=== PATIENT | male | born 1955 | race Caucasian/White ===

== ENCOUNTER 2020-01-20 08:32 | Outpatient (REF) | payer OTHER, SELFPAY | END 2020-01-20 08:33 | disposition home or self-care (01) | LOC: HO.LAB 08:32 | PROVIDERS: Visit Provider Internal Medicine | DX: Z20.828 Contact with and (suspected) exposure to other viral communicable diseases (principal) | CPT/HCPCS: C9803; U0003 ==

== ENCOUNTER 2020-06-10 07:52 | Outpatient (REF) | payer OTHER, SELFPAY ==
[2020-06-10 10:37] LABS: Cholesterol 157 mg/dL; HDL Cholesterol 49 mg/dL; LDL Cholesterol Calculated 88 mg/dl; Triglycerides 102 mg/dL
== END 2020-06-10 07:53 | disposition home or self-care (01) ==
LOC: HO.10HDL 07:52
PROVIDERS: Visit Provider Internal Medicine
DX: I10 Essential (primary) hypertension (principal)
CPT/HCPCS: 36415; 80061

== ENCOUNTER 2020-08-11 09:41 | Outpatient (REF) | payer OTHER, SELFPAY ==
[2020-08-11 11:35] LABS: Prostate Specific Antigen Scr 5.46 ng/mL (<0.05-4.0)
== END 2020-08-11 09:42 | disposition home or self-care (01) ==
LOC: HO.10HDL 09:41
PROVIDERS: Visit Provider Internal Medicine
DX: Z12.5 Encounter for screening for malignant neoplasm of prostate (principal); R35.1 Nocturia
CPT/HCPCS: 36415; 84153

== ENCOUNTER 2021-03-17 11:44 | Outpatient (REF) | payer OTHER, SELFPAY ==
[2021-03-17 15:06] LABS: Prostate Specific Antigen Scr 4.17 ng/mL (<0.05-4.0)
== END 2021-03-17 11:45 | disposition home or self-care (01) ==
LOC: HO.10HDL 11:44
PROVIDERS: Visit Provider Internal Medicine
DX: R35.1 Nocturia (principal); Z12.5 Encounter for screening for malignant neoplasm of prostate
CPT/HCPCS: 36415; 84153

== ENCOUNTER 2021-10-07 07:12 | Outpatient (REF) | payer MEDICARE, OTHER, SELFPAY ==
[2021-10-07 11:21] LABS: MANUAL DIFF FLAG NO
[2021-10-07 11:34] LABS: Basophils Percent Auto 0.7 % (0-2); Eosinophils Absolute Auto 0.2 X10*3/uL (0.0-0.4); Eosinophils Percent Auto 3.3 % (0-4); Hematocrit 44.7 % (42.0-52.0); Hemoglobin 14.5 g/dl (14.0-18.0); Imm Gran Abs Auto 0.03 X10*3/uL (0.00-0.03); Imm Gran Pct Auto 0.5 % (0.0-0.4); Lymphocytes Absolute Auto 1.5 X10*3/uL (1.2-4.9); Lymphocytes Percent Auto 25.4 % (20-40); Mean Corpuscular HGB Conc 32.4 g/dl (31.0-36.0); Mean Corpuscular Hemoglobin 29.6 pg (27.0-33.0); Mean Corpuscular Volume 91.2 fL (80.0-98.0); Mean Platelet Volume 11.4 fL (9.4-12.4); Monocytes Absolute Auto 0.7 X10*3/uL (0.1-1.2); Monocytes Percent Auto 10.7 % (2-11); Neutrophils Absolute Auto 3.6 x10*3/uL (2.0-8.3); Neutrophils Percent Auto 59.4 % (45-73); Platelet Count 260 X10*3/uL (160-400); Red Cell Distribution Width 13.6 % (11.0-16.0); White Blood Count 6.1 X10*3/uL (4.8-10.8)
[2021-10-07 11:53] LABS: Alanine Aminotransferase 37 U/L (0-40); Albumin Level 4.1 g/dL (3.5-5.0); Alkaline Phosphatase 49 U/L (39-117); Anion Gap 13 (12-20); Aspartate Amino Transferase 24 U/L (5-37); Bilirubin Total 0.4 mg/dL (0.0-1.0); Blood Urea Nitrogen 18 mg/dL (9-16); Calcium 9.3 mg/dL (8.4-10.2); Carbon Dioxide 27 mmol/L (22-29); Chloride 103 mmol/L (96-108); Cholesterol 170 mg/dL; Estimated Glomerular Filt Rate > 60; Glucose Fasting 109 mg/dL (60-99); HDL Cholesterol 49 mg/dL; LDL Cholesterol Calculated 100 mg/dl; Potassium 5.1 mmol/L (3.3-5.1); Sodium 138 mmol/L (135-145); Total Protein 7.2 g/dL (6.5-8.0); Triglycerides 106 mg/dL
[2021-10-07 12:23] LABS: Prostate Specific Antigen Scr 6.06 ng/mL (<0.05-4.0); Thyroid Stimulating Hormone 2.29 uIU/mL (0.32-4.0)
== END 2021-10-07 07:13 | disposition home or self-care (01) ==
LOC: HO.HMGCLDS 07:12
PROVIDERS: PCP Internal Medicine; Visit Provider Internal Medicine
DX: Z00.00 Encounter for general adult medical examination without abnormal findings (principal); Z12.5 Encounter for screening for malignant neoplasm of prostate; Z13.0 Encounter for screening for diseases of the blood and blood-forming organs and certain disorders involving the immune mechanism
CPT/HCPCS: 36415; 80053; 80061; 84153; 84443; 85025

== ENCOUNTER 2021-12-30 07:48 | Outpatient (REF) | payer MEDICARE, SELFPAY ==
[2021-12-30 15:10] LABS: Cholesterol 171 mg/dL; HDL Cholesterol 49 mg/dL; LDL Cholesterol Calculated 99 mg/dl; Triglycerides 116 mg/dL
== END 2021-12-30 07:49 | disposition home or self-care (01) ==
LOC: HO.HMGCLDS 07:48
PROVIDERS: PCP Internal Medicine; Visit Provider Internal Medicine
DX: E78.5 Hyperlipidemia, unspecified (principal)
CPT/HCPCS: 36415; 80061

== ENCOUNTER → 2022-02-25 09:48 | Outpatient (BNVA) | payer OTHER, MEDICARE, SELFPAY | PROVIDERS: PCP Internal Medicine; Visit Provider Urology | DX: Z13.89 Encounter for screening for other disorder (principal) ==

== ENCOUNTER 2022-06-16 07:34 | Outpatient (REF) | payer OTHER, SELFPAY ==
[2022-06-16 12:28] LABS: PSA,Total (Free>4and<10) 1.83 ng/mL (0.00-4.00)
== END 2022-06-16 07:35 | disposition home or self-care (01) ==
LOC: HO.HMGCLDS 07:34
PROVIDERS: PCP Internal Medicine; Visit Provider Urology
DX: R97.20 Elevated prostate specific antigen [PSA] (principal); Z12.5 Encounter for screening for malignant neoplasm of prostate
CPT/HCPCS: 36415; 84153

== ENCOUNTER → 2022-06-24 09:05 | Outpatient (BNVA) | payer OTHER, SELFPAY | PROVIDERS: PCP Internal Medicine; Visit Provider Urology ==

== ENCOUNTER 2022-10-13 08:34 | Outpatient (AMB) | payer OTHER, SELFPAY ==
--- NOTE | 2022-10-13 08:37 | A.OFFVIS_ITS ---
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 destin elbow pain, left thumb pain, low back pain, destin hip pain (right hip pain triggered by prior abx) Armature Bander Required: No Accompanied by: Self / Same As Patient Allergies No Known Allergies Allergy (Verified 10/13/22 08:38) Medication List - Last Reconciled 10/13/22 by Justin Culp MD esomeprazole magnesium (Nexium) 20 mg PO DAILY finasteride 5 mg PO DAILY 90 days hydrocortisone valerate 0.2% 1 appl topical BID PRN lisinopril 20 mg PO DAILY sildenafil 50 mg PO DAILY PRN simvastatin 40 mg PO BEDTIME HPI HPI Comments History of Present Illness Details This gentleman with longstanding plaque psoriasis mostly over the elbows knees presents for evaluation of multiple areas of pain. These include the left greater than right thumb, lower back, right greater than left hip, and both lateral epicondylar regions in the elbows. The hip pain he has known about for about 20 years. It tends to come and go. It seems to be worse with more physical activity. It does not seem to cause any radiation of the pain. He has taken occasional [id number] analgesics for that. In the last 6 months so he has noted pain in the right hip. This seems to be in the anterior and lateral region of the hip. It is worse with walking or standing. Rarely he notes similar pain on the left. There has been no fall or injury to the hips. He notes pain at the base of the thumb on the left and occasionally in a similar position on the right. This again is with more heavier use of the hands. 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 He did opt out of mowing the lawn this summer because of physical issues. He gets lateral elbow pain when using the hands. This has been present now for about 6 weeks. He does not know of any particular injury to the area. He did try some elbow splinting but that did not seem to help. [facility] Medical History (Updated 10/13/22 @ 09:17 by Justin Culp MD) BPH (benign prostatic hyperplasia) GERD (gastroesophageal reflux disease) Hyperlipidemia Hypertension IBS (irritable bowel syndrome) Surgical History H/O circumcision Hx of colonoscopy (~2016) Hx of esophagogastroduodenoscopy (~2016) Family History (Updated 10/13/22 @ 08:46 by JUDY Abel) Father No problems noted. Mother No problems noted. Son Psoriatic arthritis Social History (Updated 10/13/22 @ 08:44 by JUDY Abel) Household Members: Spouse Household Members Other:: son, dog, cat Housing: House Alcohol intake: former Patient Tobacco Use Status: Never used Tobacco e-Cigarette/Vaping Use: Never Used Second Hand Smoke Exposure: Yes service: No Current occupational status: employed Current occupation: insurance verification specialist-desk work Cognitive needs: No Hearing needs: Yes Vision needs: Yes Review of Systems Const Details: Negative for appetite change, weight change, fever, chills, malaise and fatigue Eyes Details: Negative for vision change, dry eyes,headaches and dizziness ENT Details: Occasional tenderness. Negative for hearing change, oral ulcer, nose bleeds and oral dryness. Card Details: Negative chest pain, edema and syncope Resp Details: Negative for SOB, cough and wheezing GI Details: Negative indigestion/heartburn, nausea, abdominal pain, bowel changes, diarrhea, constipation and bloody stool. Details: Negative for dysuria, hematuria, nocturia, decreased force/flow and genital discharge Skin/Breast Details: Longstanding plaque psoriasis. He does have a hydrocortisone cream for this but also uses [id number] tar products. Negative for itching, hives, Raynaud's symptoms, sun sensitivity, and skin cancer Neuro Details: Negative for epilepsy, palsy, stroke, changes in speech, tingling and weakness Psych Details: Negative for anxiety, depression and stress Endo Details: Negative for polyuria and polydypsia José Manuel/Lymph Details: Negative for excessive bruising or bleeding. Physical Exam Vital Signs: Last Vital Signs Temp 97.2 F 10/13/22 08:38 Pulse 79 10/13/22 08:38 BP 122/82 10/13/22 08:38 Pulse Ox 97 10/13/22 08:38 Oxygen Delivery Method Room Air 10/13/22 08:38 BMI result Body Mass Index 26.9 APPEARANCE: Patient in no acute distress EYES no redness, pupils equal and reactive to light, eyelids normal EARS: External ear normal, canal clear and tympanic membrane normal. NOSE/SINUS: Airflow through both nares, no nasal discharge, no bleeding THROAT: Oral mucosa moist, no ulcerations NECK: No thyromegaly or masses, no adenopathy, trachea midline. HEART: Regulrar rhythm, S1-S2 heard, no murmurs, rubs or gallops. LUNG: Clear to percussion and auscultation ABD: Normal bowel sounds, no organomegaly, masses or tenderness. EXTREMITIES: No edema, no calf tenderness, normal peripheral pulses. NEURO: Oriented and alert x3. No focal weakness. Reflexes symmetric. Gait normal. SKIN: Dry plaques of psoriasis evident over the elbows and knees. No nail abnormalities. No scalp lesions. JOINT EXAM:.?? Cervical Spine:.? Full range of motion without pain; no tenderness. Thoracic Spine:.? No scoliosis.? No tenderness on palpation. Lumbar Spine:.? Alignment normal.? Mild discomfort with extremes of motion. No tenderness. Chest Wall:.? No tenderness, swelling, increased warmth or erythema. Hands: Right: Mild tenderness without enlargement at the base of the thumb. T here is slight bony enlargement at the thumb IP and 2nd 3rd PIP is. These are not tender. There is bony enlargement without tenderness at the 2nd and 3rd DIP. There is no thenar atrophy or sensory loss.? Left: Mild bony enlargement and tenderness at the base of the thumb. There is nontender bony enlargement at the thumb IP and 2nd PIP. No other areas of tenderness or swelling. No thenar atrophy or sensory loss. Wrists:.? Normal pain-free range of motion without tenderness, swelling, increased warmth or erythema. Elbows:. Normal pain-free range of motion with slight discomfort at full extension. This is felt out over the lateral epicondyle where he has some mild tenderness. Over the joint spaces there is no tenderness, swelling, increased warmth or erythema. There is some minimal tenderness over the medial epicondyles bilaterally. Shoulders:.?? Right: There is some mild discomfort with extremes of normal range of motion. This is felt mostly over the deltoid. There is some subacromial and right anterior tenderness but it is mild. No abductor weakness, adenopathy, or swelling. Left: Full range of motion without pain. No tenderness, weakness, swelling, increased warmth or erythema. Hips:.? Right: Mild pain with lateral abduction at 15 degrees or more than 10 degrees of internal rotation. The pain is felt anteriorly and laterally in the hip. He lacks a little bit of hyperextension at the hip as well. Left: Slight groin pain with extremes of normal range of motion.. Hip bursa:.? Mild right trochanteric tenderness. Knees:.?? Normal pain-free range of motion with mild patellofemoral crepitus but no effusion, tenderness, swelling, increased warmth or erythema.? Ankles:.? Normal pain-free range of motion without tenderness, swelling, increased warmth or erythema. Feet: Left: Mild 1st MTP bony enlargement with slight hallux valgus deformity but no tenderness. Right:? Normal pain-free range of motion without tenderness, swelling, increased warmth or erythema. Tender points:.? No tenderness to digital palpation at the occiput, trapezius, second rib, lateral epicondyle, knees, greater trochanter and gluteal area bilaterally. ? Results Reviewed Results Reviewed: Laboratory Tests 10/07/21 10/07/21 07:18 07:18 WBC 6.1 Hgb 14.5 Creatinine 1.08 Assessment & Plan Assessment & Plan (1) Lateral epicondylitis of both elbows: Code(s): M77.11 - Lateral epicondylitis, right elbow; M77.12 - Lateral epicondylitis, left elbow (2) Hip pain, bilateral: Code(s): M25.551 - Pain in right hip; M25.552 - Pain in left hip (3) Psoriasis: Code(s): L40.9 - Psoriasis, unspecified (4) Osteoarthritis of hands, bilateral: Code(s): M19.041 - Primary osteoarthritis, right hand; M19.042 - Primary osteoarthritis, left hand Plan He has longstanding psoriasis but no findings on exam to suggest an active psoriatic arthritis picture. There are findings of osteoarthritis in the hands. He may have some OA in the hips or even some inflammatory arthiris there. I suspect he has OA in the hips as well as in the lower back given the pattern of his pain. He has also some lateral elbow tenderness consistent with lateral epicondylitis. Treatment with NSAIDs is not that attractive given he is on chronic PPI for heartburn. We will try some diclofenac gel to the affected areas in the hands and the lateral epicondylar regions. I will get x-rays of his elbows and hips as well as inflammatory markers. We will get back to him when those lab test and xrays come back. Orders: Orders XR hip LT min 2V Today M25.551 - Pain in right hip, M25.552 - Pain in left hip XR hip RT min 2V Today M25.551 - Pain in right hip, M25.552 - Pain in left hip XR elbow LT min 3V Today M77.11 - Lateral epicondylitis, right elbow, M77.12 - Lateral epicondylitis, left elbow XR elbow RT min 3V Today M77.11 - Lateral epicondylitis, right elbow, M77.12 - Lateral epicondylitis, left elbow Erythrocyte Sedimentation Rate Today M25.551 - Pain in right hip, M25.552 - Pain in left hip C Reactive Protein Today M25.551 - Pain in right hip, M25.552 - Pain in left hip Medications: New diclofenac sodium 1% apply to affected joints twice a day 2 grams topical BID 100 grams 4RF Coding Level of Care Code New Pt Level 4 (37962) Diagnoses Lateral epicondylitis of both elbows M77.11; M77.12 Hip pain, bilateral M25.551; M25.552 Psoriasis L40.9 Osteoarthritis of hands, bilateral M19.041; M19.042
[2022-10-13 08:38] VITALS: BP 122/82; PULSE 79; TEMP 36.2; O2SAT 97; BMI 26.9
== END 2022-10-13 09:47 | disposition home or self-care (01) ==
PROVIDERS: PCP Internal Medicine; Visit Provider Internal Medicine Rheumatology
DX: M77.11 Lateral epicondylitis, right elbow (principal); M77.12 Lateral epicondylitis, left elbow; M25.551 Pain in right hip; M25.552 Pain in left hip; L40.9 Psoriasis, unspecified; M19.041 Primary osteoarthritis, right hand; M19.042 Primary osteoarthritis, left hand
CPT/HCPCS: 99204

== ENCOUNTER → 2022-10-13 08:34 | Outpatient (BNVA) | payer OTHER, SELFPAY | PROVIDERS: Visit Provider Internal Medicine Rheumatology ==

== ENCOUNTER 2022-10-14 09:00 | Day surgery (SDC) | payer OTHER, SELFPAY ==
--- NOTE | 2022-10-12 12:42 | HO.ANESPROP2 ---
Documented by User: Tomasa Monterroso NP 10/12/22 12:44 HPI - Anesthesia Eval Consult details Narrative: 67yo M for Colonoscopy PMFSH Active Problems Active Problems: All Active Problems (Updated 07/05/22 @ 10:20 by Michael Moeller MD) BPH (benign prostatic hyperplasia) (Acute) Bladder outlet obstruction (Acute) Elevated PSA (Acute) Acute prostatitis (Acute) Hyperlipidemia (Acute) Psoriasis (Acute) Physical exam (Acute) Hyperlipidemia associated with type 2 diabetes mellitus (Acute) Hypertension (Acute) Past Medical History Medical History BPH (benign prostatic hyperplasia) GERD (gastroesophageal reflux disease) Hyperlipidemia Hypertension IBS (irritable bowel syndrome) Family History Family History Father No problems noted. Mother No problems noted. Son Psoriatic arthritis Surgical History Surgical History H/O circumcision Hx of colonoscopy (~2015) Hx of esophagogastroduodenoscopy (~2015) Social History Social History Household Members: Spouse Household Members Other:: son, dog, cat Housing: House Alcohol intake: former Patient Tobacco Use Status: Never used Tobacco e-Cigarette/Vaping Use: Never Used Second Hand Smoke Exposure: Yes Are you DNR?: No Advance Directives: No Advance Directives Information Provided: Yes Nutrition Risks: No Nutritional Risk service: No Current occupational status: employed Current occupation: hospital insurance representative-desk work Cognitive needs: No Hearing needs: Yes Vision needs: Yes Meds Allergies Allergy/AdvReac Type Severity Reaction Status Date / Time No Known Allergies Allergy Verified 10/14/22 09:09 Home Medications Medication Instructions Recorded Confirmed Last Taken Type esomeprazole magnesium 20 mg 20 mg PO DAILY 10/12/22 10/13/22 Unknown History capsule,delayed release (Nexium) Exam Exam Date and Time: October 12, 2022 1242 Assessment and Plan Assessment Anesthesia Assessment: Chart Reviewed Documented by User: Jessica Rahman MD 10/14/22 09:28 [facility] Past Medical History Medical History BPH (benign prostatic hyperplasia) GERD (gastroesophageal reflux disease) Hyperlipidemia Hypertension IBS (irritable bowel syndrome) Family History Family History Father No problems noted. Mother No problems noted. Son Psoriatic arthritis Family history of problems with anesthesia: No Surgical History Surgical History H/O circumcision Hx of colonoscopy (~2015) Hx of esophagogastroduodenoscopy (~2015) History of Problems with Anesthesia: No Social History Social History Household Members: Spouse Household Members Other:: son, dog, cat Housing: House Alcohol intake: former Patient Tobacco Use Status: Never used Tobacco e-Cigarette/Vaping Use: Never Used Second Hand Smoke Exposure: Yes Are you DNR?: No Advance Directives: No Advance Directives Information Provided: Yes Nutrition Risks: No Nutritional Risk service: No Current occupational status: employed Current occupation: hospital insurance representative-desk work Cognitive needs: No Hearing needs: Yes Vision needs: Yes Meds Allergies Allergy/AdvReac Type Severity Reaction Status Date / Time No Known Allergies Allergy Verified 10/14/22 09:09 Home Medications Medication Instructions Recorded Confirmed Last Taken Type esomeprazole magnesium 20 mg 20 mg PO DAILY 10/12/22 10/13/22 Unknown History capsule,delayed release (Nexium) Exam Airway Mallampati Class: II TM Dist: >3cm Neck ROM: Full Heart: rrr Lungs: cta Assessment and Plan Assessment Anesthesia Assessment: Anesthesia Plan Discussed Final Anesthetic Review Family History of Problems with Anesthesia: No History of Problems with Anesthesia: No NPO: Yes ASA Class: II Final Preanesthetic Review: No Changes in Pt Med Stat, Meds/Allgs Chart Reviewed, Consent Obtained/Reviewed and Anes Risks/Benef Reviewed Patient Risk: Low Procedure Risk: Low Anesthetic Plan Anesthetic Plan: MAC:
[2022-10-14 06:03] VITALS: BMI 27.5
[2022-10-14] MEDS: Lactated Ringers 1,000 ML 100 ML IVCONT (09:17)
[2022-10-14 09:20] VITALS: BP 123/90; PULSE 102; RESP 18; TEMP 36.2; O2SAT 95
--- NOTE | 2022-10-14 11:06 | P.BOP_ITS ---
Brief Operative Note Date of Service: 10/14/22 Pre-op diagnosis: Screening Post-op diagnosis: other (Polyps) Procedure: Colonoscopy to the cecum with biopsy and removal of polyps Surgeon: Jessee Baldwin Anesthesia: MAC Was an Legal Executive Assistant used for this Procedure?: No Estimated blood loss (mL): 2.0 Pathology: other (A. Ascending colon polyp B. Transverse colon polyp) Condition: stable Disposition: PACU
[2022-10-14 11:08] VITALS: BP 81/52; PULSE 76; RESP 16; TEMP 36.2; O2SAT 97
[2022-10-14 11:13] VITALS: BP 92/58; PULSE 75; O2SAT 96
[2022-10-14 11:18] VITALS: BP 108/76; PULSE 85; RESP 18; O2SAT 98
[2022-10-14 11:23] VITALS: BP 124/64; PULSE 88; RESP 18; TEMP 36.4; O2SAT 99
--- NOTE | 2022-10-14 11:54 | OP_ITS ---
DATE OF SERVICE: 10/14/2022 SURGEON: Jessee Baldwin MD INDICATIONS: The patient presents for evaluation of colorectal cancer screening and personal history of tubular adenoma of the colon. Full consent has been obtained from him for this, including risks of bleeding and perforation. PREOPERATIVE DIAGNOSIS: Colorectal cancer screening and personal history of tubular adenoma of the colon. POSTOPERATIVE DIAGNOSIS: Colorectal cancer screening and personal history of tubular adenoma of the colon, small colon polyps, diverticulosis, and internal hemorrhoids. PROCEDURE PERFORMED: Colonoscopy to the cecum with biopsy and removal of polyps. ESTIMATED BLOOD LOSS: COMPLICATIONS: ANESTHESIA: Monitored anesthesia care. ASSISTANTS: SPECIMENS: DESCRIPTION OF PROCEDURE: The patient was placed in the left lateral decubitus position. The digital rectal exam revealed no abnormalities. The Olympus video pediatric colonoscope was entered into the rectum and advanced easily to the cecum. Once in the cecum, I did identify normal-appearing cecal pouch with appendiceal orifice and a normal-appearing ileocecal valve. The entire cecum and ileocecal valve appeared normal. The scope was slowly withdrawn assessing all mucosal surfaces carefully. Preparation was excellent. In the ascending colon and transverse colon were some small, less than 5 mm polyps, which were all biopsied and completely removed with a cold biopsy forceps. I did not visualize any other polyps, colitis, nor angiodysplasia. There was a mild amount of sigmoid diverticulosis. In the rectum, scope was retroflexed visualizing internal hemorrhoids, but no other pathology. The rectal mucosa appeared normal. The scope was straightened and withdrawn from the patient, he tolerated the procedure well, and was returned to the recovery area in stable condition. IMPRESSION: 1. Colon polyps. 2. Diverticulosis. 3. Internal hemorrhoids. PLAN: The results of the biopsies will be checked. I would recommend a repeat colonoscopy in 5 years for further surveillance. He will otherwise see me on a p.r.n. basis. Jessee Baldwin MD RMW/JUAN JOSÉL / [id number]
== END 2022-10-14 11:55 | disposition home or self-care (01) ==
PROVIDERS: PCP Internal Medicine; Visit Provider Internal Medicine
PROC: 0DJD8ZZ Inspection of Lower Intestinal Tract, Via Natural or Artificial Opening Endoscopic (ICD-10-PCS; CPT 45378; principal; 2022-10-14 10:00)
DX: Z12.11 Encounter for screening for malignant neoplasm of colon (principal); K63.5 Polyp of colon; K57.30 Diverticulosis of large intestine without perforation or abscess without bleeding; K64.8 Other hemorrhoids; Z86.010 Personal history of colon polyps; K58.0 Irritable bowel syndrome with diarrhea; K21.9 Gastro-esophageal reflux disease without esophagitis; I10 Essential (primary) hypertension; E78.5 Hyperlipidemia, unspecified; Z79.899 Other long term (current) drug therapy
CPT/HCPCS: 45380; 88305; J2250

== ENCOUNTER 2022-11-19 10:37 | Outpatient (REF) | payer OTHER, SELFPAY ==
--- NOTE | ~2022-11-19 | XR_ITS ---
EXAMINATION: XR HIPS, BILATERAL CLINICAL INFORMATION: Pain. COMPARISON: None available. TECHNIQUE: Right hip 2 views. Left hip 2 views. FINDINGS: Right Hip: Anatomic alignment. Joint space is maintained. No acute fracture or dislocation. Lateral acetabular bony hypertrophy. Mild symphysis pubis degeneration. Phleboliths in the pelvis. Left Hip: Anatomic alignment. Joint space is maintained. Lateral acetabular hypertrophy. No acute fracture or dislocation. 1.1 cm ossification projected over the proximal femur/acetabulum, of uncertain etiology. This could represent a loose body or bony sclerotic focus. XR/XR hip RT min 2V IMPRESSION: RIGHT HIP: Mild arthritis. No acute findings. LEFT HIP: Mild arthritis. 1.1 cm ossification projected over the proximal femur/acetabulum, of uncertain uncertain etiology, could represent loose body or bony sclerotic focus. Correlate with prior imaging. Further evaluation with cross-sectional imaging as clinically warranted.
--- NOTE | ~2022-11-19 | XR_ITS ---
EXAMINATION: XR ELBOW, BILATERAL CLINICAL INFORMATION: Lateral epicondylitis. COMPARISON: None available. TECHNIQUE: Bilateral elbows each 3 views. FINDINGS: LEFT ELBOW: Alignment is anatomic. Joint spaces are maintained. No acute fracture or dislocation. Small calcification/ossification adjacent to the lateral humeral epicondyle, could reflect spurring or soft tissue calcification. No significant effusion. RIGHT ELBOW: Alignment is anatomic. Joint space is maintained. No acute fracture or dislocation. Lateral humeral epicondyle bony spurring. Olecranon process insertional spurring. No suspicious bony lesions. No significant joint effusion. XR/XR elbow RT min 3V IMPRESSION: Left elbow: Small calcification could reflect spurring or soft tissue calcification. No acute fracture. Right elbow: Lateral humeral epicondyle spurring. No acute fracture.
--- NOTE | ~2022-11-19 | XR_ITS ---
EXAMINATION: XR HIPS, BILATERAL CLINICAL INFORMATION: Pain. COMPARISON: None available. TECHNIQUE: Right hip 2 views. Left hip 2 views. FINDINGS: Right Hip: Anatomic alignment. Joint space is maintained. No acute fracture or dislocation. Lateral acetabular bony hypertrophy. Mild symphysis pubis degeneration. Phleboliths in the pelvis. Left Hip: Anatomic alignment. Joint space is maintained. Lateral acetabular hypertrophy. No acute fracture or dislocation. 1.1 cm ossification projected over the proximal femur/acetabulum, of uncertain etiology. This could represent a loose body or bony sclerotic focus. XR/XR hip LT min 2V IMPRESSION: RIGHT HIP: Mild arthritis. No acute findings. LEFT HIP: Mild arthritis. 1.1 cm ossification projected over the proximal femur/acetabulum, of uncertain uncertain etiology, could represent loose body or bony sclerotic focus. Correlate with prior imaging. Further evaluation with cross-sectional imaging as clinically warranted.
--- NOTE | ~2022-11-19 | XR_ITS ---
EXAMINATION: XR ELBOW, BILATERAL CLINICAL INFORMATION: Lateral epicondylitis. COMPARISON: None available. TECHNIQUE: Bilateral elbows each 3 views. FINDINGS: LEFT ELBOW: Alignment is anatomic. Joint spaces are maintained. No acute fracture or dislocation. Small calcification/ossification adjacent to the lateral humeral epicondyle, could reflect spurring or soft tissue calcification. No significant effusion. RIGHT ELBOW: Alignment is anatomic. Joint space is maintained. No acute fracture or dislocation. Lateral humeral epicondyle bony spurring. Olecranon process insertional spurring. No suspicious bony lesions. No significant joint effusion. XR/XR elbow LT min 3V IMPRESSION: Left elbow: Small calcification could reflect spurring or soft tissue calcification. No acute fracture. Right elbow: Lateral humeral epicondyle spurring. No acute fracture.
== END 2022-11-19 10:38 | disposition home or self-care (01) ==
LOC: HO.HMGCX 10:37
PROVIDERS: PCP Internal Medicine; Visit Provider Internal Medicine Rheumatology
DX: M77.11 Lateral epicondylitis, right elbow (principal); M77.12 Lateral epicondylitis, left elbow; M25.551 Pain in right hip; M25.552 Pain in left hip
CPT/HCPCS: 36415; 73080; 73502; 85652; 86140

== ENCOUNTER 2022-12-21 08:07 | Outpatient (REF) | payer OTHER, SELFPAY ==
[2022-12-21 12:08] LABS: Prostate Specific Antigen 1.83 ng/mL (<0.05-4.0)
== END 2022-12-21 08:08 | disposition home or self-care (01) ==
LOC: HO.HMGCLDS 08:07
PROVIDERS: PCP Internal Medicine; Visit Provider Urology
DX: Z12.5 Encounter for screening for malignant neoplasm of prostate (principal); R97.20 Elevated prostate specific antigen [PSA]
CPT/HCPCS: 36415; 84153

== ENCOUNTER 2022-12-29 09:36 | Outpatient (AMB) | payer MEDICARE, SELFPAY ==
--- NOTE | 2022-12-29 09:46 | MHC.OFFVIS ---
Intake Intake Visit Reasons: 6m/PSA(set) Intake Note: Patient is Present for Follow Up PSA Urology Medication: Finasteride, Sildenafil Antibiotic Allergies: None Blood Thinners: None Allergies No Known Allergies Allergy (Verified 12/29/22 09:47) Medication List - Last Reconciled 12/29/22 by Cornell Goodwin MD diclofenac sodium 1% 2 grams topical BID esomeprazole magnesium (Nexium) 20 mg PO DAILY finasteride 5 mg PO DAILY 90 days hydrocortisone valerate 0.2% 1 appl topical BID PRN lisinopril 20 mg PO DAILY sildenafil 50 mg PO DAILY PRN simvastatin 40 mg PO BEDTIME HPI HPI Comments History of Present Illness Details Rj is a pleasant male. He is a patient of Dr. Hensley. He is seen for the following urologic conditions - elevated PSA Continued low PSA Occasional hesitancy but otherwise stable Continue PSA review in 6 months stable can move out to 1 year Elevated PSA He presents for - follow-up evaluation of elevated PSA Symptoms include - minimal urinary symptoms Current management is observation Laboratory investigations include - a total PSA evaluation - 08/03 5.5, 04/06 4.6, 10/04 6.1, 07/05 1.8, 01/05 1.8 Had recently been diagnosed with prostatitis. LEONELA has 2+ prostate No family history prostate cancer Therapeutic plan will be - 6 month follow-up PSA [facility] Medical History IBS (irritable bowel syndrome) GERD (gastroesophageal reflux disease) BPH (benign prostatic hyperplasia) Hyperlipidemia Hypertension Surgical History H/O circumcision Hx of esophagogastroduodenoscopy (~2015) Hx of colonoscopy (~2015) Family History Father No problems noted. Mother No problems noted. Son Psoriatic arthritis Social History Household Members: Spouse Household Members Other:: son, dog, cat Housing: House Alcohol intake: former Patient Tobacco Use Status: Never used Tobacco e-Cigarette/Vaping Use: Never Used Second Hand Smoke Exposure: Yes service: No Current occupational status: employed Current occupation: licensed insurance sales agent-desk work Cognitive needs: No Hearing needs: Yes Vision needs: Yes Review of Systems Const Denies chills and Denies fever(s) Card Reports no additional complaints and Denies syncope Resp Denies cough GI Denies abdominal pain and Denies heartburn Reports as per HPI and Denies change in libido Neuro Denies syncope Psych Denies change in libido Endo Denies change in libido Physical Exam Const General: cooperative, healthy appearing, comfortable and no acute distress Orientation/consciousness: patient oriented x3 HEENT Face and sinus: Yes normal facial exam Mouth: moist mucous membranes Neck Neck: Yes normal visual inspection, Yes full ROM and Yes trachea midline Chest Chest palpation & inspection: normal inspection of the chest Resp Effort & Inspection: normal respiratory effort, able to speak in complete sentences and no respiratory distress GI Inspection: Yes normal to inspection Back/Spine/Pelvis Cervical Spine: normal cervical lordosis Thoracic/Lumbar Spine: thoracic and lumbar spine normal to inspection Skin General skin exam: no rashes or lesions noted Neuro General: patient oriented x3, gait normal, tone normal and moves all extremities Extrem General: Yes normal to inspection and Yes capillary refill normal Assessment & Plan Assessment & Plan (1) Elevated PSA: Code(s): R97.20 - Elevated prostate specific antigen [PSA] (2) Bladder outlet obstruction: Code(s): N32.0 - Bladder-neck obstruction Plan Six month follow-up Orders: Orders Prostate Specific Antigen 6 Months R97.20 - Elevated prostate specific antigen [PSA] Medications: Refilled finasteride 5 mg PO DAILY 90 days 90 tabs 1RF N13.8 - Other obstructive and reflux uropathy, N40.1 - Benign prostatic hyperplasia with lower urinary tract symptoms, R33.9 - Retention of urine, unspecified, R97.20 - Elevated prostate specific antigen [PSA] Patient Instructions: Imaging studies, laboratory and physical exam results were discussed and reviewed in detail. No major barriers to patient understanding were identified. An opportunity to ask questions regarding the treatment plan was provided. All questions were answered. The patient expressed understanding and agreement with the above treatment plan. The patient is aware they should contact our office by phone for worsening of their current condition or the appearance of new urologic symptoms. Compliance is encouraged with any medications and followup testing that is ordered. It is a privilege to participate in the urologic care of your patient. If you have any questions or concerns regarding treatment for the above conditions, or other urologic issues, please do not hesitate to contact me. The office telephone contact is [phone]. This note is constructed using voice recognition software. While every effort has been made to ensure accuracy building coordinator errors may have been included. Yours sincerely, Dr Cornell Goodwin MD, [facility] - Urology Providers of Expert, Compassionate Care for the Genitourinary System Coding Level of Care Code Est Pt Level 3 (96893) Diagnoses Elevated PSA R97.20 Bladder outlet obstruction N32.0
== END 2022-12-29 10:04 | disposition home or self-care (01) ==
PROVIDERS: Visit Provider Urology
DX: R97.20 Elevated prostate specific antigen [PSA] (principal); N32.0 Bladder-neck obstruction
CPT/HCPCS: 99213

== ENCOUNTER → 2022-12-29 09:36 | Outpatient (BNVA) | payer OTHER, SELFPAY | PROVIDERS: Visit Provider Urology ==

== ENCOUNTER 2023-04-18 07:55 | Outpatient (AMB) | payer MEDICARE, SELFPAY ==
[2023-04-18 07:59] VITALS: BP 126/78; PULSE 78; O2SAT 99; BMI 27.4
--- NOTE | 2023-04-18 07:59 | MHC.OFFVIS ---
Intake Vital Signs 04/18/23 07:59 Height 6 ft Weight 202 lb 6.15 oz BMI 27.4 BP 126/78 Blood Pressure Location Rt brachial Pulse 78 Pulse Source Pulse Oximeter Pulse Oximetry (%) 99 Oxygen Delivery Method Room Air Intake Visit Reasons: Psoriasis Intake Note: Patient last seen by Dr Culp on 10/13/22 presents today for follow up and test results. Reports occasional joint pain/stiffness. Started going back to the gym. Primary Mill Roller Required: No Accompanied by: Self / Same As Patient Allergies No Known Allergies Allergy (Verified 04/18/23 08:05) Medication List - Last Reconciled 04/18/23 by Racquel Peres MD diclofenac sodium 1% 2 grams topical BID esomeprazole magnesium (Nexium) 20 mg PO DAILY finasteride 5 mg PO DAILY 90 days hydrocortisone valerate 0.2% 1 appl topical BID PRN lisinopril 20 mg PO DAILY sildenafil 50 mg PO DAILY PRN simvastatin 40 mg PO BEDTIME HPI HPI Comments History of Present Illness Details 67-year-old male with psoriasis returns for follow-up. He was evaluated by Dr. Culp 09/2022 for evaluation of potential psoriatic arthritis, he was having relatively abrupt onset of bilateral hip pain, bilateral elbow pain. He was deemed not to have inflammatory arthritis at that time. Patient states that he is doing well overall. He is going to the gym. Those 3 days a week does machines mostly. No free weights. Joint pains improving. Occasionally feels a twinge in the right hip, he can not think of any predisposing or alleviating factors. States that his psoriasis is getting a little worse. More patches on his elbows and legs states that his psoriasis generally improve in the summer. He uses topical steroid creams as needed. Most recent history by Dr. Culp 09/2022: This gentleman with longstanding plaque psoriasis mostly over the elbows knees presents for evaluation of multiple areas of pain. These include the left greater than right thumb, lower back, right greater than left hip, and both lateral epicondylar regions in the elbows. The hip pain he has known about for about 20 years. It tends to come and go. It seems to be worse with more physical activity. It does not seem to cause any radiation of the pain. He has taken occasional [id number] analgesics for that. In the last 6 months so he has noted pain in the right hip. This seems to be in the anterior and lateral region of the hip. It is worse with walking or standing. Rarely he notes similar pain on the left. There has been no fall or injury to the hips. He notes pain at the base of the thumb on the left and occasionally in a similar position on the right. This again is with more heavier use of the hands. 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 He did opt out of mowing the lawn this summer because of physical issues. He gets lateral elbow pain when using the hands. This has been present now for about 6 weeks. He does not know of any particular injury to the area. He did try some elbow splinting but that did not seem to help. [facility] Medical History IBS (irritable bowel syndrome) GERD (gastroesophageal reflux disease) BPH (benign prostatic hyperplasia) Hyperlipidemia Hypertension Surgical History H/O circumcision Hx of esophagogastroduodenoscopy (~2015) Hx of colonoscopy (~2015) Family History Father No problems noted. Mother No problems noted. Son Psoriatic arthritis Son Diabetes mellitus Social History Household Members: Spouse Household Members Other:: son, dog, cat Housing: House Alcohol intake: current Alcohol intake frequency: a few times a week Patient Tobacco Use Status: Never used Tobacco e-Cigarette/Vaping Use: Never Used Second Hand Smoke Exposure: Yes service: No Current occupational status: employed Current occupation: insurance claims representative-desk work Cognitive needs: No Hearing needs: Yes Vision needs: Yes Review of Systems Musc Denies arthralgias, Denies joint swelling and Denies stiffness Skin/Breast Reports rash Physical Exam Vital Signs: Last Vital Signs Pulse 78 04/18/23 07:59 BP 126/78 04/18/23 07:59 Pulse Ox 99 04/18/23 07:59 Oxygen Delivery Method Room Air 04/18/23 07:59 BMI result Body Mass Index 27.4 Const General: cooperative, healthy appearing and comfortable Nutritional Appearance: overweight Orientation/consciousness: patient oriented x3 Limitations: no limitations HEENT Head: Yes normocephalic and Yes atraumatic Mouth: moist mucous membranes Resp Effort & Inspection: normal respiratory effort and able to speak in complete sentences Auscultation: clear to auscultation bilaterally Cardio Rate: regular rate Rhythm: regular rhythm Skin Other: Psoriasis patches on extensor surface of both elbows, small patches on back and multiple patches on legs Neuro General: patient oriented x3 Extrem Other: No active synovitis No nail pitting Negative resisted wrist extension test bilaterally Negative straight leg raise test bilaterally Negative Fabere test bilaterally Minimal right groin pain with flexion adduction and external rotation Assessment & Plan Assessment & Plan (1) Osteoarthritis of hips, bilateral: Comment: mild on xray 11/2022 Code(s): M16.0 - Bilateral primary osteoarthritis of hip Qualifiers: Osteoarthritis type: primary Qualified Code(s): M16.0 - Bilateral primary osteoarthritis of hip Plan: This is a 67-year-old male with long history of psoriasis who presents for evaluation of multiple joint pain. Patient was evaluated by Dr. Culp 09/2022 and there was no evidence of psoriatic arthritis. Patient comes back for re-evaluation. Upon evaluation today there are no signs suggestive of inflammatory arthritis. Patient's symptoms are improving. He has been exercising regularly at the gym. Advised patient to follow-up as needed Plan I spent 26 minutes reviewing patient's chart, evaluating patient, counseling patient and documenting in the chart Coding Level of Care Code Est Pt Level 3 (58360) Diagnoses Primary osteoarthritis of both hips M16.0 Osteoarthritis type: primary
== END 2023-04-18 08:39 | disposition home or self-care (01) ==
PROVIDERS: PCP Internal Medicine; Visit Provider Student in an Organized Health Care Education/Training Program
DX: M16.0 Bilateral primary osteoarthritis of hip (principal)
CPT/HCPCS: 99213

== ENCOUNTER → 2023-04-18 07:55 | Outpatient (BNVA) | payer MEDICARE, SELFPAY | PROVIDERS: PCP Internal Medicine; Visit Provider Student in an Organized Health Care Education/Training Program | DX: M16.0 Bilateral primary osteoarthritis of hip (principal) | CPT/HCPCS: 99212 ==

== ENCOUNTER 2023-06-23 06:14 | Outpatient (REF) | payer MEDICARE, SELFPAY ==
[2023-06-23 10:39] LABS: MANUAL DIFF FLAG NO
[2023-06-23 10:51] LABS: Basophils Percent Auto 0.6 % (0-2); Eosinophils Absolute Auto 0.2 X10*3/uL (0.0-0.4); Eosinophils Percent Auto 2.7 % (0-4); Hematocrit 44.7 % (42.0-52.0); Hemoglobin 14.6 g/dl (14.0-18.0); Imm Gran Abs Auto 0.02 X10*3/uL (0.00-0.03); Imm Gran Pct Auto 0.3 % (0.0-0.4); Lymphocytes Absolute Auto 1.6 X10*3/uL (1.2-4.9); Lymphocytes Percent Auto 24.6 % (20-40); Mean Corpuscular HGB Conc 32.7 g/dl (31.0-36.0); Mean Corpuscular Hemoglobin 29.6 pg (27.0-33.0); Mean Corpuscular Volume 90.5 fL (80.0-98.0); Mean Platelet Volume 11.4 fL (9.4-12.4); Monocytes Absolute Auto 0.6 X10*3/uL (0.1-1.2); Monocytes Percent Auto 9.5 % (2-11); Neutrophils Absolute Auto 4.2 x10*3/uL (2.0-8.3); Neutrophils Percent Auto 62.3 % (45-73); Platelet Count 261 X10*3/uL (160-400); Red Blood Count 4.94 X10*6/uL (4.60-5.80); Red Cell Distribution Width 13.5 % (11.0-16.0); White Blood Count 6.7 X10*3/uL (4.8-10.8)
[2023-06-23 11:03] LABS: Alanine Aminotransferase 33 U/L (0-40); Albumin Level 4.2 g/dL (3.5-5.0); Alkaline Phosphatase 47 U/L (39-117); Anion Gap 13 (12-20); Aspartate Amino Transferase 22 U/L (5-37); Bilirubin Total 0.5 mg/dL (0.0-1.0); Blood Urea Nitrogen 14 mg/dL (9-16); Calcium 9.8 mg/dL (8.4-10.2); Carbon Dioxide 27 mmol/L (22-29); Chloride 105 mmol/L (96-108); Cholesterol 146 mg/dL (<200); Estimated Glomerular Filt Rate > 60; Glucose Fasting 103 mg/dL (60-99); HDL Cholesterol 48 mg/dL (>40); LDL Cholesterol Calculated 77 mg/dL (<100); Potassium 4.6 mmol/L (3.3-5.1); Sodium 140 mmol/L (135-145); Total Protein 7.5 g/dL (6.5-8.0); Triglycerides 106 mg/dL (<150)
[2023-06-23 11:23] LABS: Prostate Specific Antigen 1.55 ng/mL (<0.05-4.0)
== END 2023-06-23 06:15 | disposition home or self-care (01) ==
LOC: HO.HMGCLDS 06:14
PROVIDERS: PCP Internal Medicine; Referring Provider Urology; Visit Provider Internal Medicine
DX: R97.20 Elevated prostate specific antigen [PSA] (principal); E78.5 Hyperlipidemia, unspecified; D64.9 Anemia, unspecified; N28.9 Disorder of kidney and ureter, unspecified; Z12.5 Encounter for screening for malignant neoplasm of prostate
CPT/HCPCS: 36415; 80053; 80061; 84153; 85025

== ENCOUNTER → 2023-06-29 08:49 | Outpatient (BNVA) | payer MEDICARE, SELFPAY | PROVIDERS: PCP Internal Medicine; Visit Provider Urology ==

== ENCOUNTER 2023-06-30 15:27 | Outpatient (AMB) | payer MEDICARE, SELFPAY ==
--- NOTE | 2023-06-30 15:31 | A.OFFVIS_ITS ---
Intake Visit Reasons: 6M PSA(set) Allergies No Known Allergies Allergy (Verified 04/18/23 08:05) HPI Comments Details: Rj is a pleasant male. He is a patient of Dr. Hensley. He is seen for the following urologic conditions - elevated PSA Telemedicine Evaluation 15 min Consultation [employer] Amy Video Continued low PSA Move out to yearly PSA Will consider decreasing finasteride at that time Elevated PSA He presents for - follow-up evaluation of elevated PSA Symptoms include - minimal urinary symptoms Current management is observation Laboratory investigations include - a total PSA evaluation - 08/03 5.5, 04/06 4.6, 10/04 6.1, 07/05 1.8, 01/05 1.8 Had recently been diagnosed with prostatitis. LEONELA has 2+ prostate No family history prostate cancer PFSH Medical History IBS (irritable bowel syndrome) GERD (gastroesophageal reflux disease) BPH (benign prostatic hyperplasia) Hyperlipidemia Hypertension Surgical History H/O circumcision Hx of esophagogastroduodenoscopy (~2015) Hx of colonoscopy (~2015) Family History Father No problems noted. Mother No problems noted. 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 Cognitive needs: No Hearing needs: Yes Vision needs: Yes Review of Systems Const All systems reviewed & are unremarkable except as noted in HPI and below Reports no additional complaints Resp Reports no additional complaints GI Reports no additional complaints Reports as per HPI Musc Reports no additional complaints Physical Exam Telemedicine evaluation Appropriate responses Regular breathing rate and rhythm HEENT Head: Yes normal to inspection Ears: hearing grossly normal bilaterally Eyes General: appearance normal, both eyes and all related structures Neck Neck: Yes normal visual inspection Chest Chest palpation & inspection: normal inspection of the chest Resp Effort & Inspection: normal respiratory effort and able to speak in complete sentences Telehealth Telehealth Telehealth Platform: [employer] Location of provider rendering services: practice address Location of patient: address on file Patient Identification confirmed using: Name, : Yes Telehealth method: video Patient verbally consented to treatment: Yes Patient verbally consented to billing insurance company: Yes Patient informed of any privacy concerns related to visit: Yes Minutes spent on Phone/Video with Pt.: 15 Assessment & Plan Assessment & Plan (1) Bladder outlet obstruction: Code(s): N32.0 - Bladder-neck obstruction Category: Medical (2) Elevated PSA: Code(s): R97.20 - Elevated prostate specific antigen [PSA] Category: Medical Plan Twelve month follow-up PSA Orders: Orders Prostate Specific Antigen 364 Days R97.20 - Elevated prostate specific antigen [PSA] Patient Instructions: Imaging studies, laboratory and physical exam results were discussed and reviewed in detail. No major barriers to patient understanding were identified. An opportunity to ask questions regarding the treatment plan was provided. All questions were answered. The patient expressed understanding and agreement with the above treatment plan. The patient is aware they should contact our office by phone for worsening of their current condition or the appearance of new urologic symptoms. Compliance is encouraged with any medications and followup testing that is ordered. It is a privilege to participate in the urologic care of your patient. If you have any questions or concerns regarding treatment for the above conditions, or other urologic issues, please do not hesitate to contact me. The office telephone contact is [phone]. This note is constructed using voice recognition software. While every effort has been made to ensure accuracy backend developer errors may have been included. Yours sincerely, Dr Cornell Goodwin MD, [facility] - Urology Providers of Expert, Compassionate Care for the Genitourinary System Coding Level of Care Code Tele Est Pt Level 3 (46589) Diagnoses Bladder outlet obstruction N32.0 Elevated PSA R97.20
== END 2023-06-30 15:56 | disposition home or self-care (01) ==
PROVIDERS: PCP Internal Medicine; Visit Provider Urology
DX: N32.0 Bladder-neck obstruction (principal); R97.20 Elevated prostate specific antigen [PSA]
CPT/HCPCS: 99213

== ENCOUNTER → 2023-06-30 15:27 | Outpatient (BNVA) | payer MEDICARE, SELFPAY | PROVIDERS: PCP Internal Medicine; Visit Provider Urology ==

== ENCOUNTER 2023-07-27 09:54 | Outpatient (AMB) | payer MEDICARE, SELFPAY ==
[2023-07-27 09:56] VITALS: BP 126/90; PULSE 71; O2SAT 97; BMI 26.3
--- NOTE | 2023-07-27 09:56 | A.OFFPC_ITS ---
Vital Signs 07/27/23 09:56 Height 6 ft Weight 194 lb BMI 26.3 BP 126/90 H Blood Pressure Location Lt brachial Position Sitting Pulse 71 Pulse Source Pulse Oximeter Pulse Oximetry (%) 97 Oxygen Delivery Method Room Air Intake Visit Reasons: annual exam Intake Note: Patient is here today for a physical. 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 Accompanied by: Self / Same As Patient Allergies No Known Allergies Allergy (Verified 07/27/23 09:58) Medication List - Last Reconciled 07/28/23 by Michael Moeller MD diclofenac sodium 1% 2 grams topical BID esomeprazole magnesium (Nexium) 20 mg PO DAILY finasteride 5 mg PO DAILY 90 days hydrocortisone valerate 0.2% 1 appl topical BID PRN lisinopril 20 mg PO DAILY sildenafil 50 mg PO DAILY PRN simvastatin 40 mg PO BEDTIME Tobacco use date assessed: 07/27/23 Fall risk assessment: No Falls in past year Last assessed Fall Risk: 07/27/23 Dental Screening Dental Screen Date: 07/27/23 Did you have a dental visit in the last 12 months?: Yes Did you have a dental problem in the last 6 months where you did not have access to dental care?: No Was dental information given to patient?: Patient has dentist HPI annual exam HPI Details htn and hyperlip on rx PFSH Medical History (Updated 07/28/23 @ 10:05 by Michael Meoller MD) Hyperlipidemia IBS (irritable bowel syndrome) GERD (gastroesophageal reflux disease) BPH (benign prostatic hyperplasia) Hypertension Surgical History H/O circumcision Hx of esophagogastroduodenoscopy (~2015) Hx of colonoscopy (~2015) Family History Father No problems noted. Mother No problems noted. Son Psoriatic arthritis Son Diabetes mellitus Social History Household Members: Spouse Household Members Other:: son, dog, cat Housing: House Alcohol intake: current Alcohol intake frequency: a few times a week Patient Tobacco Use Status: Never used Tobacco e-Cigarette/Vaping Use: Never Used Second Hand Smoke Exposure: Yes service: No Current occupational status: employed Current occupation: hospital insurance representative-desk work Cognitive needs: No Hearing needs: Yes Vision needs: Yes Questionnaire PHQ-9 Over the last 2 weeks, how often have you been bothered by any of the following problems? 1. Little interest or pleasure in doing things: not at all 2. Feeling down, depressed, or hopeless: not at all 3. Trouble falling or staying asleep, or sleeping too much: not at all 4. Feeling tired or having little energy: not at all 5. Poor appetite or overeating: not at all 6. Feeling bad about yourself - or that you are a failure or have let yourself or your family down: not at all 7. Trouble concentrating on things, such as reading the newspaper or watching television: not at all 8. Moving or speaking so slowly that other people could have noticed. Or the opposite - being so fidgety or restless that you have been moving around a lot more than usual: not at all 9. Thoughts that you would be better off or of hurting yourself in some way: not at all Total score: 0 Depression Screening Interpretation: Negative Depression Screening Done: Yes 32432 - PHQ-9 Billing: Yes Source: Developed by Drs. Jessee Dangelo, Asia Main, Sarbjit Call and colleagues, with an educational tashi from [employer]. Thrive Questionnaire Date Thrive assessed: 07/27/23 I am a: Patient What is your living situation today?: I have a steady place to live Within the past 12 months, did the food you bought not last and you didn't have the money to get more?: Never true Within the past 12 months, did you worry whether your food would run out before you got money to buy more?: Never true Do you have trouble paying for medicines?: No Do you have trouble getting transportation to medical appointments?: No Do you have trouble paying your heating and electricity bill?: No Do you have trouble taking care of your child, family member or friend?: No Do you have trouble with day-to-day activities such as bathing, preparing meals, shopping, managing finances, etc.?: No Are you currently unemployed and looking for a job?: No Are you interested in more education?: No Please select the resources that you would like help with: None Currently or been in a relationship where the following occur: no concerns reported THRIVE Score: 0 AUDIT C Alcohol Use Questionnaire (AUDIT-C) 1. How often do you have a drink containing alcohol?: 2-3 times a week 2. How many drinks containing alcohol do you have on a typical day when you are drinking?: 3 or 4 3. How often do you have six or more drinks on one occasion?: Never Total Score: 4 Score Reviewed/Action Taken: Yes MATT-7 AMB Questionnaire MATT-7 Date MATT - 7 assessed: 07/27/23 Feeling nervous, anxious, or on edge: 0 = Not at all Not being able to stop or control worryin = Not at all Worrying too much about different things: 0 = Not at all Trouble relaxin = Not at all Being so restless that it is hard to sit still: 0 = Not at all Becoming easily annoyed or irritable: 0 = Not at all Feeling afraid as if something awful might happen: 0 = Not at all Total MATT-7 score (0-4 normal; 5-9 mild; 10-14 moderate; 15-21 severe): 0 Source: Developed by Drs. Jessee Dangelo, Asia Main, Sarbjit Call and colleagues, with an educational tashi from [employer]. MATT-7 Assessment Billing MATT-7 Assessment Tool: MATT-7 Assessment 95642 Review of Systems Const Denies chills, Denies fatigue, Denies headache(s) and Denies weight loss Eyes Denies change in vision, Denies diplopia and Denies eye pain ENT Denies vertigo, Denies dizziness, Denies headache(s) and Denies nasal discharge Card Denies chest pain, Denies rapid heart rate and Denies dyspnea on exertion Resp Denies chest congestion, Denies cough, Denies pain with cough and Denies dyspnea on exertion GI Denies abdominal pain, Denies hematochezia and Denies change in bowel habits Musc Denies myalgias, Denies arthralgias and Denies joint swelling Skin/Breast Denies lesions and Denies unusual bruising Neuro Denies vertigo, Denies dizziness, Denies headache(s) and Denies focal weakness Endo Denies fatigue Physical exam (Primary Care) Vital Signs: Last Vital Signs Pulse 71 07/27/23 09:56 BP 126/90 H 07/27/23 09:56 Pulse Ox 97 07/27/23 09:56 Oxygen Delivery Method Room Air 07/27/23 09:56 BMI result Body Mass Index 26.3 Tobacco/Smoking Status: Tobacco use Status Tobacco use date assessed 07/27/23 07/27/23 09:58 Patient Tobacco Use Status Never used Tobacco 07/27/23 09:58 e-Cigarette/Vaping Use Never Used 07/27/23 09:58 PHQ-9: PHQ-9 Score PHQ-9: Total score 0 07/27/23 10:04 Depression Screening Interpretation: Negative Thrive Assessment: Date of Thrive Assessment Date Thrive assessed 07/27/23 07/27/23 09:58 Currently or been in a relationship where the following occur: no concerns reported Const General: cooperative, healthy appearing and no acute distress Orientation/consciousness: oriented to person, oriented to place and oriented to time HENMT Head: Yes normal to inspection, Yes normocephalic and Yes atraumatic Mouth: Normal oral and palatal mucosa present and tongue normal Throat: Yes posterior oropharynx normal and Yes uvula midline Eyes General: appearance normal, both eyes and all related structures Neck Neck: Yes normal visual inspection, Yes full ROM and Yes no lymphadenopathy Thyroid: Thyroid normal Carotids: normal carotid upstroke Chest Chest palpation & inspection: normal inspection of the chest Resp Effort & Inspection: normal respiratory effort and able to speak in complete sentences Auscultation: clear to auscultation bilaterally Cardio Jugular venous distension: no JVD Palpation: normal PMI Rate: regular rate Rhythm: regular rhythm Heart sounds: S1 normal heart sound present and S2 normal heart sound present GI Inspection: Yes normal to inspection Palpation (GI): Soft to palpation and No hepatosplenomegaly present Auscultation: normal bowel sounds General: Yes no CVA tenderness Back/Spine/Pelvis Back: no CVA tenderness Skin General skin exam: no rashes or lesions noted Neuro General: oriented to person, oriented to place and oriented to time Extrem General: Yes normal to inspection and Yes full ROM Results AMB Hemoglobin A1c AMB Hemoglobin A1c 5.9 % Last Edit by JUDY Weathers on 07/27/23 10:04 Results Reviewed Results Reviewed: Laboratory Last Values Hgb A1c (Clinic) 5.9 % (4.0-6.0) 07/27/23 10:03 Assessment and Plan Assessment & Plan (1) Physical exam: Code(s): Z00.00 - Encounter for general adult medical examination without abnormal findings Plan: stable; do labs (2) Hypertension: Code(s): I10 - Essential (primary) hypertension Plan: stable (3) Hyperlipidemia: Code(s): E78.5 - Hyperlipidemia, unspecified Plan: stable Orders: Orders Complete Blood Count Auto Diff Today Z13.0 - Encounter for screening for diseases of the blood and blood-forming organs and certain disorders involving the immune mechanism Comprehensive Artesian. Panel Fast Today Z13.9 - Encounter for screening, unspecified AMB Hemoglobin A1c 07/26/24 E11.69 - Type 2 diabetes mellitus with other specified complication, E78.5 - Hyperlipidemia, unspecified Lipid Panel Today Z13.220 - Encounter for screening for lipoid disorders Coding Level of Care Code Est Pt Prev Care >65y(34031) Diagnoses Physical exam Z00.00 Hypertension I10 Hyperlipidemia E78.5 Additional Codes MATT-7 Assessment Billing - MATT-7 Assessment Tool: MATT-7 Assessment 18112 ([id number])
== END 2023-07-27 10:09 | disposition home or self-care (01) ==
PROVIDERS: PCP Internal Medicine; Visit Provider Internal Medicine
DX: E11.69 Type 2 diabetes mellitus with other specified complication (principal); E78.5 Hyperlipidemia, unspecified
CPT/HCPCS: 83036; 99397

== ENCOUNTER 2024-06-14 06:29 | Outpatient (REF) | payer MEDICARE, SELFPAY ==
--- OUTSIDE RECORDS SUMMARY | 2024-06-14 06:32 | XMS_ITS | Clinical Summary ---
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 Role Phone Unavailable Primary Care Provider Unavailabl e Immunizations Name Administration Dates Next Due Covid-19 (Pfizer) Dilution Required 05/19/2020 Social History Tobacco Use Types Packs/Day Years Used Date Smoking Tobacco: Never Assessed Sex and Gender Information Value Date Recorded Sex Assigned at Not on file Gender Identity Not on file Sexual Orientation Not on file Plan of Treatment Health Maintenance Due Date Last Done Comments Hepatitis C Screening 1955 Depression Screening 1968 Preventative Health Evaluation 1974 DTap / Tdap / Td (1 - Tdap) 09/20/1975 Colon Cancer Screening (Colonoscopy) 2001 Shingrix-Zoster Vaccine (1 o f 2) 2006 Fall Risk Assessment 2021 Pneumococcal Vaccine (1 of 1 - PCV) 2021 COVID-19 Vaccine (3 - 2023-2 5 season) 2023 05/19/2020, 04/27/2020 Influenza Vaccine (#1) 2023 RSV Adult > 60+ Yrs or (1 - 1-dose 75+ series) 09/20/2031 Hepatitis B Vaccines Aged Out No long er eligible based on patient's age to complete this topic RSV Ped < 20 months Aged Out No longe r eligible based on patient's age to complete this topic
[2024-06-14 10:50] LABS: Prostate Specific Antigen 2.23 ng/mL (<0.05-4.0)
== END 2024-06-14 06:30 | disposition home or self-care (01) ==
LOC: HO.HMGCLDS 06:29
PROVIDERS: Visit Provider Urology
DX: R97.20 Elevated prostate specific antigen [PSA] (principal); Z12.5 Encounter for screening for malignant neoplasm of prostate
CPT/HCPCS: 36415; 84153

== ENCOUNTER 2024-07-26 06:09 | Outpatient (REF) | payer MEDICARE, SELFPAY ==
[2024-07-26 10:05] LABS: MANUAL DIFF FLAG NO
[2024-07-26 10:13] LABS: Basophils Percent Auto 0.4 % (0-2); Eosinophils Absolute Auto 0.2 X10*3/uL (0.0-0.4); Eosinophils Percent Auto 3.1 % (0-4); Hematocrit 41.4 % (42.0-52.0); Hemoglobin 13.6 g/dl (14.0-18.0); Imm Gran Abs Auto 0.01 X10*3/uL (0.00-0.03); Imm Gran Pct Auto 0.2 % (0.0-0.4); Lymphocytes Absolute Auto 1.3 X10*3/uL (1.2-4.9); Lymphocytes Percent Auto 25.1 % (20-40); Mean Corpuscular HGB Conc 32.9 g/dl (31.0-36.0); Mean Corpuscular Volume 91.4 fL (80.0-98.0); Mean Platelet Volume 11.4 fL (9.4-12.4); Monocytes Absolute Auto 0.5 X10*3/uL (0.1-1.2); Monocytes Percent Auto 9.8 % (2-11); Neutrophils Absolute Auto 3.1 x10*3/uL (2.0-8.3); Neutrophils Percent Auto 61.4 % (45-73); Platelet Count 253 X10*3/uL (160-400); Red Blood Count 4.53 X10*6/uL (4.60-5.80); Red Cell Distribution Width 13.6 % (11.0-16.0); White Blood Count 5.1 X10*3/uL (4.8-10.8)
[2024-07-26 10:48] LABS: Estimated Average Glucose 108 mg/dL; Hemoglobin A1c % 5.4 % (<6.0); Total Hemoglobin (HGBA1C) 3607.8771 umol/L
[2024-07-26 11:15] LABS: Alanine Aminotransferase 19 U/L (0-40); Albumin Level 4.3 g/dL (3.5-5.0); Alkaline Phosphatase 48 U/L (39-117); Anion Gap 10 (12-20); Aspartate Amino Transferase 26 U/L (5-37); Bilirubin Total 0.6 mg/dL (0.0-1.0); Blood Urea Nitrogen 16 mg/dL (9-16); Calcium 9.5 mg/dL (8.4-10.2); Carbon Dioxide 29 mmol/L (22-29); Chloride 104 mmol/L (96-108); Cholesterol 141 mg/dL (<200); Estimated Glomerular Filt Rate > 60; Folate 9.5 ng/mL (> or = 4.0); Glucose Random 90 mg/dL (60-115); HDL Cholesterol 54 mg/dL (>40); LDL Cholesterol Calculated 72 mg/dL (<100); Potassium 4.3 mmol/L (3.3-5.1); Sodium 139 mmol/L (135-145); Total Protein 6.9 g/dL (6.5-8.0); Triglycerides 79 mg/dL (<150); Vitamin B12 277 pg/mL (200-900)
[2024-07-26 11:18] LABS: TSH reflex Free T4 2.38 uIU/mL (0.32-4.0); Vitamin D 25-OH Total 22.8 ng/mL (>30)
== END 2024-07-26 06:10 | disposition home or self-care (01) ==
LOC: HO.HMGCLDS 06:09
DX: Z00.00 Encounter for general adult medical examination without abnormal findings (principal); E11.65 Type 2 diabetes mellitus with hyperglycemia; E78.00 Pure hypercholesterolemia, unspecified; Z13.21 Encounter for screening for nutritional disorder; E78.5 Hyperlipidemia, unspecified; E11.69 Type 2 diabetes mellitus with other specified complication; I10 Essential (primary) hypertension
CPT/HCPCS: 36415; 80053; 80061; 82306; 82607; 82746; 83036; 84443; 85025

== ENCOUNTER 2024-08-01 08:41 | Outpatient (AMB) | payer MEDICARE, SELFPAY ==
[2024-08-01 08:48] VITALS: BP 122/82; PULSE 65; RESP 16; TEMP 36.2; O2SAT 97; BMI 22.6
--- NOTE | 2024-08-01 08:48 | MHC.PC.OV ---
Vital Signs 08/01/24 08:48 Height 6 ft Weight 166 lb 12.8 oz BMI 22.6 BP 122/82 Blood Pressure Location Lt brachial Position Sitting Respiration 16 Pulse 65 Pulse Source Pulse Oximeter Temp 97.1 F Temp Source Temporal Artery Scan Pulse Oximetry (%) 97 Oxygen Delivery Method Room Air Intake Visit Reasons: GIA Dr Moeller - adrianna comments [employer] Software Developer Required: No Accompanied by: Self / Same As Patient Allergies No Known Allergies Allergy (Verified 08/01/24 09:07) Medication List - Last Reconciled 08/01/24 by Tracee Zee PA-C esomeprazole magnesium (Nexium) 20 mg PO DAILY finasteride 5 mg PO DAILY 90 days hydrocortisone valerate 0.2% 1 appl topical BID PRN lisinopril 20 mg PO DAILY simvastatin 40 mg PO BEDTIME tadalafil (Cialis) 5 mg PO DAILY Tobacco use date assessed: 08/01/24 Fall risk assessment: No Falls in past year Last assessed Fall Risk: 08/01/24 Dental Screening Dental Screen Date: 08/01/24 Did you have a dental visit in the last 12 months?: Yes Did you have a dental problem in the last 6 months where you did not have access to dental care?: No Was dental information given to patient?: Patient has dentist HPI GIA Dr Moeller - adrianna comments HPI Details 68-year-old male with past medical history of hyperlipidemia, hypertension last seen by Dr. Moeller 07/2023 coming in for transfer of care. Presenting for a routine wellness visit and management of chronic conditions. The patient has a history of low hemoglobin levels, with a recent measurement of 13.6 g/dL, slightly below the normal range. With concurrent low B12 level. No recent gastrointestinal bleeding or significant symptoms were reported. The patient follows a low-salt diet and consumes limited red meat, which may contribute to vitamin deficiencies. Previously recorded A1c levels indicated prediabetes, but recent levels have improved to 5.4%, indicating better glucose control. The patient has made dietary changes, reducing sugar intake and losing weight, contributing to improved glucose level. The patient has asymmetrical hearing loss, primarily affecting the left ear, and uses hearing aids which has been investigated by ENT and has been persistent for many years. colonoscopy: completed 2022 repeat in 5 years PSA: 06/[address] Tobin [facility] Medical History Hyperlipidemia IBS (irritable bowel syndrome) GERD (gastroesophageal reflux disease) BPH (benign prostatic hyperplasia) Hypertension Surgical History H/O circumcision Hx of esophagogastroduodenoscopy (~2016) Hx of colonoscopy (~2016) Family History Father No problems noted. Mother No problems noted. 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 1. Little interest or pleasure in doing things: not at all 2. Feeling down, depressed, or hopeless: not at all 3. Trouble falling or staying asleep, or sleeping too much: not at all 4. Feeling tired or having little energy: not at all 5. Poor appetite or overeating: not at all 6. Feeling bad about yourself - or that you are a failure or have let yourself or your family down: not at all 7. Trouble concentrating on things, such as reading the newspaper or watching television: not at all 8. Moving or speaking so slowly that other people could have noticed. Or the opposite - being so fidgety or restless that you have been moving around a lot more than usual: not at all 9. Thoughts that you would be better off or of hurting yourself in some way: not at all Total score: 0 Depression Screening Interpretation: Negative Depression Screening Done: Yes 20688 - PHQ-9 Billing: Yes Source: Developed by Drs. Jessee Dangelo, AsiaSarbjit Hall and colleagues, with an educational tashi from [employer]. Thrive Questionnaire Date Thrive assessed: 08/01/24 I am a: Patient What is your living situation today?: I have a steady place to live Within the past 12 months, did the food you bought not last and you didn't have the money to get more?: Never true Within the past 12 months, did you worry whether your food would run out before you got money to buy more?: Never true Do you have trouble paying for medicines?: No Do you have trouble getting transportation to medical appointments?: No Do you have trouble paying your heating and electricity bill?: No Do you have trouble taking care of your child, family member or friend?: No Are you currently unemployed and looking for a job?: No Are you interested in more education?: No Please select the resources that you would like help with: None Currently or been in a relationship where the following occur: No concerns reported THRIVE Score: 0 AUDIT C Alcohol Use Questionnaire (AUDIT-C) 1. How often do you have a drink containing alcohol?: 4 or more times a week 2. How many drinks containing alcohol do you have on a typical day when you are drinking?: 1 or 2 3. How often do you have six or more drinks on one occasion?: Never Total Score: 4 Score Reviewed/Action Taken: Yes MATT-7 AMB Questionnaire MATT-7 Date MATT - 7 assessed: 08/01/24 Feeling nervous, anxious, or on edge: 0 = Not at all Not being able to stop or control worryin = Not at all Worrying too much about different things: 0 = Not at all Trouble relaxin = Not at all Being so restless that it is hard to sit still: 0 = Not at all Becoming easily annoyed or irritable: 0 = Not at all Feeling afraid as if something awful might happen: 0 = Not at all Total MATT-7 score (0-4 normal; 5-9 mild; 10-14 moderate; 15-21 severe): 0 Source: Developed by Drs. Jessee Dangelo, Sarbjit Piña and colleagues, with an educational tashi from [employer]. MATT-7 Assessment Billing MATT-7 Assessment Tool: MATT-7 Assessment 21545 Review of Systems Const Denies body aches, Denies fatigue, Denies fever(s), Denies frequent falls, Denies headache(s) and Denies weakness Eyes Reports no additional complaints and Denies change in vision ENT Denies dysphagia, Denies dizziness, Denies facial pain, Denies headache(s), Denies nasal congestion and Denies odynophagia Card Denies chest pain, Denies syncope, Denies irregular heart rhythm, Denies leg edema, Denies lightheadedness and Denies dyspnea Resp Denies cough and Denies dyspnea GI Denies constipation, Denies dysphagia, Denies dyspepsia, Denies diarrhea, Denies nausea, Denies odynophagia and Denies vomiting Denies dysuria, Denies urinary frequency, Denies urinary hesitancy and Denies urinary urgency Musc Denies back pain and Denies myalgias Skin/Breast Reports system reviewed and no additional complaints, except as documented Neuro Denies dizziness, Denies syncope, Denies frequent falls, Denies headache(s) and Denies weakness Psych Reports no additional complaints Endo Denies fatigue Physical exam (Primary Care) Vital Signs: Last Vital Signs Temp 97.1 F 08/01/24 08:48 Pulse 65 08/01/24 08:48 Resp 16 08/01/24 08:48 BP 122/82 08/01/24 08:48 Pulse Ox 97 08/01/24 08:48 Oxygen Delivery Method Room Air 08/01/24 08:48 BMI result Body Mass Index 22.6 Tobacco/Smoking Status: Tobacco use Status Tobacco use date assessed 08/01/24 08/01/24 08:58 Patient Tobacco Use Status Never used Tobacco 08/01/24 08:58 e-Cigarette/Vaping Use Never Used 08/01/24 08:58 PHQ-9: PHQ-9 Score PHQ-9: Total score 0 08/01/24 08:58 Depression Screening Interpretation: Negative Thrive Assessment: Date of Thrive Assessment Date Thrive assessed 08/01/24 08/01/24 08:58 Currently or been in a relationship where the following occur: No concerns reported Const General: cooperative, healthy appearing, comfortable and no acute distress Orientation/consciousness: patient oriented x3 HENMT Head: Yes normocephalic Ears: hearing grossly normal bilaterally, external ears normal, TM's normal bilaterally, EAC's normal and Abnormal EAC present excessive cerumen on the right General nose exam: Normal external nose present Face and sinus: Yes normal facial exam and Yes sinuses nontender Mouth: Normal oral and palatal mucosa present and tongue normal Throat: Yes posterior oropharynx normal Eyes General: appearance normal, both eyes and all related structures Conjunctivae: conjunctivae normal Pupils: Equal, round and reactive pupils present EOM: EOMs intact bilaterally and No Nystagmus present Neck Neck: Yes normal visual inspection, Yes full ROM and Yes no lymphadenopathy Chest Chest palpation & inspection: normal inspection of the chest Resp Effort & Inspection: normal respiratory effort Auscultation: clear to auscultation bilaterally, no crackles, no rales, no rhonchi, no wheezes and breath sounds present Cardio Rate: regular rate Rhythm: regular rhythm Peripheral pulses: radial pulses present and dorsalis pedis present GI Inspection: Yes normal to inspection and No Abdominal wall edema Palpation (GI): Soft to palpation, not firm and nontender Auscultation: normal bowel sounds Rectal Exam - Male: Yes deferred General: Yes no CVA tenderness Back/Spine/Pelvis Back: no CVA tenderness Skin Other: Multiple plaques of psoriasis on bilateral lower extremities General skin exam: no rashes or lesions noted Neuro General: patient oriented x3 Cranial nerves: Yes Equal, round and reactive pupils present, Yes Midline tongue present, Yes Ability to bilaterally elevate shoulders present and No Nystagmus present Gait exam (Neuro): Normal gait present Extrem General: Yes normal to inspection, Yes full ROM, No no pedal edema and No edema Psych Speech and movement: Normal speech and movement present Affect: normal affect Insight: Good insight present (Psych) Judgement: Good judgement present (Psych) Coding Level of Care Code Est Pt Prev Care >65y(96723) Diagnoses Physical exam Z00.00 Hypertension I10 Hyperlipidemia E78.5 Elevated PSA R97.20 Psoriasis L40.9 GERD (gastroesophageal reflux disease) K21.9 Anemia D64.9 Rash R21 Additional Codes MATT-7 Assessment Billing - MATT-7 Assessment Tool: MATT-7 Assessment 18797 ([id number]) PHQ-9 - 11014 - PHQ-9 Billing: Yes ([id number]) Assessment & Plan Assessment & Plan (1) Physical exam: Code(s): Z00.00 - Encounter for general adult medical examination without abnormal findings Category: Medical Plan: Patient is up-to-date on all recommended routine screenings and vaccinations for his age. Blood work is up-to-date and has been reviewed with the patient. Healthy diet and regular exercise is encouraged. (2) Hypertension: Code(s): I10 - Essential (primary) hypertension Category: Medical Plan: Continue on current blood pressure medication. Avoid salt intake and encourage healthy diet and regular exercise. (3) Hyperlipidemia: Code(s): E78.5 - Hyperlipidemia, unspecified Category: Medical Plan: Avoid foods that are high in cholesterol such as red meat, fried foods, eggs and baked goods. Triglyceride goal of less than 150 and LDL goal of less than 130. Plan to decrease Simvastatin to 20mg given weight loss and significant improvement in LDL. Patient would like to work on removing this medication if possible plan to repeat cholesterol labs in 3 months and if remain low can consider discontinuation of simvastatin. (4) Elevated PSA: Code(s): R97.20 - Elevated prostate specific antigen [PSA] Category: Medical Plan: Patient currently following with Dr. Goodwin through Urology for PSA levels. He has an upcoming appointment in August. Currently on tadalafil and finasteride. (5) Psoriasis: Code(s): L40.9 - Psoriasis, unspecified Category: Medical Plan: Continue to use topical creams as needed for plaques. (6) GERD (gastroesophageal reflux disease): Code(s): K21.9 - Gastro-esophageal reflux disease without esophagitis Category: Medical Plan: Avoid trigger foods such as citrus, tomato products, soda, caffeine, spicy foods and other foods that may be irritating to your stomach. Avoid laying flat 3-4 hours after eating and elevate the head of the bed 30 degrees to prevent acid from moving into the esophagus. Continue on Nexium. (7) Anemia: Code(s): D64.9 - Anemia, unspecified Category: Medical Plan: Patient having mildly low hemoglobin level on last blood work. He did recently change his diet and does not include high amounts of red meat. Potential for B12 anemia. Recommended use of B12 supplement and repeat CBC. (8) Rash: Code(s): R21 - Rash and other nonspecific skin eruption Category: Medical Plan: Patient reporting a rash in the intertriginous folds that comes and goes and worsens with hot weather. He states it will typically worsen when he is walking for long periods of time and/or sweating excessively. Likely a chafing rash recommended use of nystatin powder to prevent yeast buildup and prevent chafing. Advised patient if rash worsens or persists to reach out to the office. Exam was not completed today. Plan The plan for anemia involves retesting hemoglobin levels along with vitamin , folate, and iron studies to identify any deficiencies contributing to the condition. The patient is advised to continue with dietary modifications, including increased intake of foods rich in these vitamins and minerals. For prediabetes, the patient will maintain dietary changes and regular exercise to sustain improved glucose levels. The psoriasis management will continue with [id number] treatments, with the option of prescription-strength steroid creams if flares increase in severity. The hiatal hernia and associated acid reflux will be managed with Nexium, and the patient is advised to avoid foods that exacerbate symptoms. The left bundle branch block will be monitored for any changes in symptoms. For asymmetrical hearing loss, the patient will continue using hearing aids and avoid Q-tips to prevent further wax buildup. Osteoarthritis management includes regular exercise and weight management to reduce joint stress. The hyperlipidemia plan involves reducing the simvastatin dose from 40 mg to 20 mg, with follow-up cholesterol testing in three months to assess the need for continued medication. Vitamin supplementation will be initiated to address the deficiency, with follow-up testing to monitor levels. This note was constructed using voice recognition software. While every effort has been made to ensure accuracy and psychiatric rn, still areas may have been included sometimes these areas may affect the content or meeting of the given symptoms. Total time spent caring for the patient today was 30 minutes. This includes time spent before the visit reviewing the chart, time spent during the visit, and time spent after the visit and documentation. Patient was informed and verbally consented to the use of an ambient scribe for clinic note documentation during this visit. Orders: Orders Lipid Panel 3 Months E78.00 - Pure hypercholesterolemia, unspecified Complete Blood Count Auto Diff Today D64.9 - Anemia, unspecified, Z00.00 - Encounter for general adult medical examination without abnormal findings Vitamin B12 and Folate Today D64.9 - Anemia, unspecified, Z13.21 - Encounter for screening for nutritional disorder IRON PROFILE Today D64.9 - Anemia, unspecified Medications: New simvastatin 20 mg PO BEDTIME 90 tabs 0RF nystatin 1 appl topical DAILY 30 grams 0RF Discontinued simvastatin Discontinued Reason: Patient no longer taking 40 mg PO BEDTIME 90 tabs 1RF
--- OUTSIDE RECORDS SUMMARY | 2024-08-01 09:03 | XMS_ITS | Clinical Summary ---
Author Organization [employer] [facility] Address [address] [place] [address] Care Team Providers Care Vehicle Controls Engineer Name Role Phone Unavailable Primary Care Provider [...] 5 season) 2023 05/19/2020, 04/27/2020 Influenza Vaccine (Season Ended) 2024 RSV Adult > 60+ Yrs or (1 - 1-dose 75+ series) 09/20/2031 Hepatitis B Vaccines Aged Out No long er eligible based on patient's age to complete this topic RSV Ped < 20 months Aged Out No longe r eligible based on patient's age to complete this topic
== END 2024-08-01 09:41 | disposition home or self-care (01) ==
DX: Z00.00 Encounter for general adult medical examination without abnormal findings (principal); I10 Essential (primary) hypertension; E78.5 Hyperlipidemia, unspecified; R97.20 Elevated prostate specific antigen [PSA]; L40.9 Psoriasis, unspecified; K21.9 Gastro-esophageal reflux disease without esophagitis; D64.9 Anemia, unspecified; R21 Rash and other nonspecific skin eruption

== ENCOUNTER → 2024-08-01 08:41 | Outpatient (BNVA) | payer MEDICARE, SELFPAY | DX: Z00.00 Encounter for general adult medical examination without abnormal findings (principal); I10 Essential (primary) hypertension; E78.5 Hyperlipidemia, unspecified; R97.20 Elevated prostate specific antigen [PSA]; L40.9 Psoriasis, unspecified; K21.9 Gastro-esophageal reflux disease without esophagitis; D64.9 Anemia, unspecified; R21 Rash and other nonspecific skin eruption | CPT/HCPCS: 96127; 99397 ==

== ENCOUNTER 2024-09-12 09:48 | Outpatient (AMB) | payer MEDICARE, SELFPAY ==
--- NOTE | 2024-09-12 09:48 | MHC.OFFVIS ---
Intake Visit Reasons: 1y/PSA Intake Note: Patient is Present for Follow Up for 1 yr follow up PSA Urology Medication: Finasteride, Sildenafil Antibiotic Allergies: None Blood Thinners: None Labs done 07/02/24: PSA:2.23 Class B Truck Driver Required: No Accompanied by: Self / Same As Patient Allergies No Known Allergies Allergy (Verified 09/12/24 09:49) HPI Comments Details: Rj is a pleasant male. He is a patient of Dr. Hensley. He is seen for the following urologic conditions - elevated PSA - lower urinary tract symptoms Yearly follow-up PSA remains low May cut finasteride back to every other day Elevated PSA He presents for - follow-up evaluation of elevated PSA Symptoms include - minimal urinary symptoms Current management is observation Laboratory investigations include - a total PSA evaluation - 08/03 5.5, 04/06 4.6, 10/04 6.1, 07/05 1.8, 01/05 1.8, 07/07 2.2 Had recently been diagnosed with prostatitis. LEONELA has 2+ prostate No family history prostate cancer PFSH Medical History Hyperlipidemia IBS (irritable bowel syndrome) GERD (gastroesophageal reflux disease) BPH (benign prostatic hyperplasia) Hypertension Surgical History H/O circumcision Hx of esophagogastroduodenoscopy (~2015) Hx of colonoscopy (~2015) Family History Father No problems noted. Mother No problems noted. Son Psoriatic arthritis Son Diabetes mellitus Social History Household Members: Spouse Household Members Other:: son, dog, cat Housing: House Alcohol intake: current Alcohol intake frequency: a few times a week Patient Tobacco Use Status: Never used Tobacco e-Cigarette/Vaping Use: Never Used Second Hand Smoke Exposure: Yes service: No Current occupational status: employed Current occupation: insurance verification representative-desk work Cognitive needs: No Hearing needs: Yes Vision needs: Yes (Glasses) Review of Systems Const Denies chills and Denies fever(s) Card Reports no additional complaints and Denies syncope Resp Denies cough GI Denies abdominal pain and Denies heartburn Reports as per HPI and Denies change in libido Neuro Denies syncope Psych Denies change in libido Endo Denies change in libido Physical Exam Const General: cooperative, healthy appearing, comfortable and no acute distress Orientation/consciousness: patient oriented x3 HEENT Face and sinus: Yes normal facial exam Mouth: moist mucous membranes Neck Neck: Yes normal visual inspection, Yes full ROM and Yes trachea midline Chest Chest palpation & inspection: normal inspection of the chest Resp Effort & Inspection: normal respiratory effort, able to speak in complete sentences and no respiratory distress GI Inspection: Yes normal to inspection Rectal Exam - Male: Yes normal sphincter tone and Yes prostate normal Male General Exam: Yes normal external exam Penis: normal penis and circumcised Meatus: meatus normal Scrotum: scrotum normal Testes: Testes normal Back/Spine/Pelvis Cervical Spine: normal cervical lordosis Thoracic/Lumbar Spine: thoracic and lumbar spine normal to inspection Skin General skin exam: no rashes or lesions noted Neuro General: patient oriented x3, gait normal, tone normal and moves all extremities Extrem General: Yes normal to inspection and Yes capillary refill normal Assessment & Plan Assessment & Plan (1) Elevated PSA: Code(s): R97.20 - Elevated prostate specific antigen [PSA] Category: Medical (2) Bladder outlet obstruction: Code(s): N32.0 - Bladder-neck obstruction Category: Medical Plan 12 month follow-up PSA Orders: Orders Prostate Specific Antigen 12 Months R97.20 - Elevated prostate specific antigen [PSA] Patient Instructions: This note is constructed using voice recognition software. While every effort has been made to ensure accuracy crm manager errors may have been included. Imaging studies, laboratory and physical exam results were discussed and reviewed in detail. No major barriers to patient understanding were identified. An opportunity to ask questions regarding the treatment plan was provided. All questions were answered. The patient expressed understanding and agreement with the above treatment plan. The patient is aware they should contact our office by phone for worsening of their current condition or the appearance of new urologic symptoms. Compliance is encouraged with any medications and followup testing that is ordered. It is a privilege to participate in the urologic care of your patient. If you have any questions or concerns regarding treatment for the above conditions, or other urologic issues, please do not hesitate to contact me. The office telephone contact is [phone]. Sincerely, Dr Cornell Goodwin MD, [facility] - Urology Compassionate Specialist Care for the Genitourinary System Coding Level of Care Code Est Pt Level 4 (05392) Diagnoses Elevated PSA R97.20 Bladder outlet obstruction N32.0
--- OUTSIDE RECORDS SUMMARY | 2024-09-12 10:19 | XMS_ITS | Clinical Summary ---
Author Organization [facility] Address [address] [place] [address] Care Team Providers Care Housing Management Officer Name Role Phone Unavailable Primary Care Provider [...] season) 2023 05/19/2020, 04/27/2020 Influenza Vaccine (#1) 2024 RSV Adult > 60+ Yrs or (1 - 1-dose 75+ series) 09/20/2031 Hepatitis B Vaccines Aged Out No long er eligible based on patient's age to complete this topic RSV Ped < 20 months Aged Out No longe r eligible based on patient's age to complete this topic
--- OUTSIDE RECORDS SUMMARY | 2024-09-12 10:19 | XMS_ITS | Patient Health Record ---
Author Organization [facility] Address [address] [place] [address] Care Team Providers Care Furniture Inspector Name Role Phone Michael Moeller MD Primary Care Provider Jessee Yee [phone] Allergies No Known Allergies Reason For Referral No Information Medications Medication SIG (Take, Route, Fr equency, Duration) Notes Start Date End Date Status Finasteride 5 MG Oral for 90 A ctive Lisinopril 20 MG Oral for 90 A ctive NexIUM 20 MG 1 capsule Orally Onc e a day for 30 day(s) Active Simvastatin 40 MG Oral for 90 Active Social History Tobacco Use: Social History Observation Description Date Details (start date - stop date) Never Smoker NA - NA Tobacco Use/Smoking Question Answer Notes Patient is a nonsmoker Alcohol Screen Question Answer Notes Did you have a drink contain ing alcohol in the past year? Yes How often did you have a dri nk containing alcohol in the past year? 4 or more times a week (4 points) How many drinks did you have on a typical day when you were drinking in the past year? 3 or 4 drinks (1 point) How often did you have 6 or more drinks on one occasion in the past year? Never (0 point) Points 5 Interpretation Positive Section Notes: Nonsmoker; 2 beers QD Problems Problem Type SNOMED Code ICD Code Onset Dates Problem Status W/U Status Risk Notes Problem 431773013 Colon cancer screening (Z12.11) Active confirmed Problem 621632718 History of adenomatous polyp of colon (Z86.010) Active confirmed Problem 255183222 Irritable bowel syndrome with diarrhea (K58.0) Active confirmed Problem 886145277 Gastroesophageal reflux disease without esophagitis (K21.9) Active confirmed Plan Of Treatment Pending Test Test Name Order Date Pathology 10/14/2022 Future Test Test Name Order Date COLONOSCOPY 07/07/2022 Insurance Providers Payer Name Payer Address Payer Phone Subscriber Number Group Number Insured Name Patient Relationship to Insured Coverage Start Date Coverage End Date [facility] Medicare Advantage Plan [address] [address] [place] [address] [id number] NELSON Self - patient is the insured Medical (General) History Medical History History ICD Code Hypertension GERD-EGD 03/2015--told of a hiatal hernia ; normal gastric biopsies Colonoscopy in 03/2015-one small tubular adenoma BPH Hyperlipidemia IBS Surgical History Surgery Date(Month/Year) Circumcision at age 31
== END 2024-09-12 10:25 | disposition home or self-care (01) ==
LOC: HO.HUSH 09:48
PROVIDERS: PCP Internal Medicine; Visit Provider Urology
DX: R97.20 Elevated prostate specific antigen [PSA] (principal); N32.0 Bladder-neck obstruction
CPT/HCPCS: 99214

== ENCOUNTER → 2024-09-12 09:48 | Outpatient (BNVA) | payer MEDICARE, SELFPAY | PROVIDERS: PCP Internal Medicine; Visit Provider Urology | DX: R97.20 Elevated prostate specific antigen [PSA] (principal); N32.0 Bladder-neck obstruction; N41.9 Inflammatory disease of prostate, unspecified; Z79.899 Other long term (current) drug therapy | CPT/HCPCS: 99212 ==

== ENCOUNTER 2024-10-30 06:30 | Outpatient (REF) | payer MEDICARE, SELFPAY ==
[2024-10-30 10:55] LABS: Cholesterol 150 mg/dL (<200); HDL Cholesterol 60 mg/dL (>40); Triglycerides 78 mg/dL (<150)
== END 2024-10-30 06:31 | disposition home or self-care (01) ==
LOC: HO.HMGCLDS 06:30
DX: E78.00 Pure hypercholesterolemia, unspecified (principal)
CPT/HCPCS: 36415; 80061

== ENCOUNTER 2025-02-07 09:08 | Outpatient (REF) | payer MEDICARE, SELFPAY ==
--- OUTSIDE RECORDS SUMMARY | 2025-02-07 09:11 | XMS_ITS | Patient Health Record ---
Author Organization [facility] Address [address] [place] [id number] Care Team Providers Care All Source Intelligence Technician Name Role Phone Michael Moeller MD Primary Care Provider Jessee Yee [phone] Allergies No Known Allergies Reason For Referral No Information Medications Medication SIG (Take, Route, Frequency, Duration) Notes Start Date End Date Status Finasteride 5 MG Tablet Oral; Duration: 90 Active Lisinopril 20 MG Tablet Oral; Duration: 90 Active NexIUM 20 MG Capsule Delayed Release 1 capsule Orally Once a day; Duration: 30 day(s) Active Simvastatin 40 MG Tablet Oral; Duration: 90 Active Social History Tobacco Use: Social History Observation Description Date Details (start date - stop date) Never Smoker NA - NA Social History Drugs/Alcohol: Social Info Question Answer Notes Alcohol Screen Did you have a drink containing alcohol in the past year? Yes How often did you have a drink containing alcohol in the past year? 4 or more times a week (4 points) How many drinks did you have on a typical day when you were drinking in the past year? 3 or 4 drinks (1 point) How often did you have 6 or more drinks on one occasion in the past year? Never (0 point) Points 5 Interpretation Positive Tobacco Use: Social Info Question Answer Notes Tobacco Use/Smoking Patient is a nonsmoker Additional Details Category Social Info Options Details Miscellaneous: Marital status: Occupation: Insurance sales Section Notes: Nonsmoker; 2 beers QD Problems Problem Type SNOMED Code ICD Code Onset Dates Problem Status W/U Status Risk Notes Problem Colon cancer screening (663317852) Colon cancer screening (Z12.11) Active confirmed Problem History of adenomatous polyp of colon (732400651) History of adenomatous polyp of colon (Z86.010) Active confirmed Problem Irritable bowel syndrome with diarrhea (661893012) Irritable bowel syndrome with diarrhea (K58.0) Active confirmed Problem Gastroesophageal reflux disease without esophagitis (745621656) Gastroesophageal reflux disease without esophagitis (K21.9) Active confirmed Plan Of Treatment Pending Test Test Name Order Date Pathology 10/14/2022 Future Test Test Name Order Date COLONOSCOPY 07/07/2022 Insurance Providers Payer Name Payer Address Payer Phone Subscriber Number Group Number Insured Name Patient Relationship to Insured Coverage Start Date Coverage End Date [employer] Medicare Advantage Plan [address] [address] [place] [address] [id number] AMADA NELSON Self - patient is the insured Medical (General) History Medical History History ICD Code Hypertension GERD-EGD 03/2015--told of a hiatal hernia ; normal gastric biopsies Colonoscopy in 03/2015-one small tubular adenoma BPH Hyperlipidemia IBS Surgical History Surgery Date(Month/Year) Circumcision at age 31
--- OUTSIDE RECORDS SUMMARY | 2025-02-07 09:11 | XMS_ITS | Clinical Summary ---
Author Organization [facility] Prior to 07/13/24 Address [address] [place] [address] Care Team Providers Care Labor Arbitrator Hearing Office Name Role Phone Unavailable Primary Care Provider [...] - PCV) 2021 COVID-19 Vaccine (3 - 2024-2 6 season) 2024 05/19/2020, 04/27/2020 Influenza Vaccine (#1) 2024 RSV Adult > 60+ Yrs or (1 - 1-dose 75+ series) 09/20/2031 Hepatitis B Vaccines Aged Out No long er eligible based on patient's age to complete this topic RSV Ped < 20 months Aged Out No longe r eligible based on patient's age to complete this topic
[2025-02-07 10:15] LABS: MANUAL DIFF FLAG NO
[2025-02-07 10:33] LABS: Hematocrit 39.8 % (42.0-52.0); Hemoglobin 13.0 g/dl (14.0-18.0); Imm Gran Abs Auto 0.02 X10*3/uL (0.00-0.03); Imm Gran Pct Auto 0.3 % (0.0-0.4); Lymphocytes Absolute Auto 1.7 X10*3/uL (1.2-4.9); Mean Corpuscular HGB Conc 32.7 g/dl (31.0-36.0); Mean Corpuscular Hemoglobin 30.0 pg (27.0-33.0); Mean Corpuscular Volume 91.9 fL (80.0-98.0); NRBC Abs Auto 0.000 X10*3/uL (0.0-0.012); NRBC Pct Auto 0.0 /100WBC (0.0-0.2); Platelet Count 248 X10*3/uL (160-400); Red Blood Count 4.33 X10*6/uL (4.60-5.80); White Blood Count 6.1 X10*3/uL (4.8-10.8)
[2025-02-07 11:00] LABS: Iron 96 mcg/dL (45-160); Percent Iron Saturation 32 % (15-50); Total Iron Binding Capacity 300 mcg/dL (228-428); Unsaturated Iron Binding 204 ug/dL
[2025-02-07 11:08] LABS: Ferritin 102 ng/mL (20-250)
[2025-02-07 11:23] LABS: PSA,Total (Free>4and<10) 2.28 ng/mL (0.00-4.00)
[2025-02-07 11:29] LABS: Vitamin B12 1280 pg/mL (200-900)
[2025-02-11 10:29] LABS: Vitamin D 25-OH, D2 <4 ng/mL; Vitamin D 25-OH, D3 7 ng/mL; Vitamin D 25-OH, Total 7 ng/mL (30-100)
== END 2025-02-07 09:09 | disposition home or self-care (01) ==
LOC: HO.HMGCLDS 09:08
PROVIDERS: PCP Student in an Organized Health Care Education/Training Program; Visit Provider Student in an Organized Health Care Education/Training Program
DX: D64.9 Anemia, unspecified (principal); E55.9 Vitamin D deficiency, unspecified; N40.0 Benign prostatic hyperplasia without lower urinary tract symptoms; Z12.5 Encounter for screening for malignant neoplasm of prostate; Z13.21 Encounter for screening for nutritional disorder
CPT/HCPCS: 36415; 82306; 82607; 82728; 83540; 84153; 85025